=== PATIENT | female | born 1990 | race Caucasian/White ===

== ENCOUNTER 2016-06-21 03:18 | Emergency (ER) | payer MEDICAID ==
[~2016-06-21] VITALS: Ht 167.6 cm; Wt 79.4 kg
[~2016-06-21 03:18] MED LIST: ADDERALL 10 MG10 MG PO; AMOXIL500 MG PO; CLARITIN10 MG PO; LAMICTAL25 MG PO; LAMICTAL5 MG PO; LATUDA20 MG PO; LYRICA75 MG PO; MOBIC15 MG PO; NORCO 325-5 MG1 TAB PO; PROPRANOLOL PO; SYNTHROID25 MCG PO; VALIUM5 MG PO; ZITHROMAX1 GM PO
== END 2016-06-21 04:00 | disposition short-term general hospital (02) ==
LOC: ER 03:18
DX: H66.91 Otitis media, unspecified, right ear (principal); F17.210 Nicotine dependence, cigarettes, uncomplicated; Z88.1 Allergy status to other antibiotic agents
CPT/HCPCS: J1885

== ENCOUNTER 2016-08-01 19:29 | Emergency (ER) | payer MEDICAID ==
[~2016-08-01] VITALS: Ht 170.2 cm; Wt 78.9 kg
== END 2016-08-01 20:27 | disposition short-term general hospital (02) ==
LOC: ER 19:29
DX: M54.6 Pain in thoracic spine (principal); Z88.0 Allergy status to penicillin
CPT/HCPCS: J1885; J8499

== ENCOUNTER 2016-08-15 16:02 | Emergency (ER) | payer MEDICAID ==
[~2016-08-15] VITALS: Ht 170.2 cm; Wt 78.9 kg
== END 2016-08-15 17:25 | disposition short-term general hospital (02) ==
LOC: ER 16:02
DX: R10.32 Left lower quadrant pain (principal); Z79.899 Other long term (current) drug therapy; Z90.49 Acquired absence of other specified parts of digestive tract; Z88.1 Allergy status to other antibiotic agents

== ENCOUNTER 2016-12-31 06:07 | Emergency (ER) | payer MEDICAID ==
[~2016-12-31] VITALS: Ht 170.2 cm; Wt 78.9 kg
== END 2016-12-31 08:05 | disposition short-term general hospital (02) ==
LOC: ER 06:07
DX: R10.9 Unspecified abdominal pain (principal); M54.9 Dorsalgia, unspecified; R30.0 Dysuria; Z88.0 Allergy status to penicillin; Z79.899 Other long term (current) drug therapy

== ENCOUNTER 2017-01-05 17:31 | Emergency (ER) | payer MEDICAID ==
[~2017-01-05] VITALS: Ht 170.2 cm; Wt 72.6 kg
[2017-01-05] MEDS ORDERED: MOTRIN800 MG PO (19:46)
[2017-01-05] MEDS ORDERED: PREDNISONE5 MG PO (19:46)
[2017-01-05] MEDS ORDERED: FLEXERIL10 MG PO (19:47)
[2017-01-05] MEDS ORDERED: ADDERALL 10 MG10 MG PO (19:47)
[2017-01-05] MEDS ORDERED: LAMICTAL5 MG PO (19:48)
[2017-01-05] MEDS ORDERED: AMBIEN10 MG PO (19:48)
== END 2017-01-05 20:00 | disposition short-term general hospital (02) ==
LOC: ER 17:31
DX: M54.2 Cervicalgia (principal); M54.5 Low back pain; Z88.1 Allergy status to other antibiotic agents; F17.210 Nicotine dependence, cigarettes, uncomplicated